=== PATIENT | female | born 2000 | race Caucasian/White ===

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

== ENCOUNTER 2018-03-22 09:37 | Outpatient (CLI) | payer OTHER, SELFPAY ==
[2018-03-22 10:07] LABS: HCT 35.4 % (36.0-46.0); HGB 12.1 g/dL (12.0-15.5); Mean Corp. HGB Concentration 34.2 g/dL (32.0-36.0); Mean Corpuscular Hemoglobin 29.4 pg (27.0-33.0); Mean Corpuscular Volume 85.9 fL (80-95); Mean Platelet Volume 10.5 fL (8.0-11.0); Platelet Count 131 x1000/uL (130-400); RBC 4.12 m/cumm (4.00-5.20); RBC Distribution Width 12.4 % (11.7-14.6)
[2018-03-22 10:43] LABS: Absolute Neutrophil Count 2.15 k/cumm (1.2-6.7)
[2018-03-22 10:48] LABS: Absolute Lymphocyte Count 3.13 k/cumm (1.2-3.4)
[2018-03-22 10:49] LABS: Absolute Eosinophil Count 0.06 k/cumm (0.0-0.7); Absolute Monocyte Count 0.46 k/cumm (0.11-0.7); Atypical Lymphocytes % 28; Diff Comment Manual Differential; ESR 60 MM/HR (0-20); RBC Morphology Normal
[2018-03-22 11:39] LABS: Mono Screening Negative (Negative)
[2018-03-22 11:46] LABS: ALT 193 U/L (12-78); AST 119 U/L (15-37); Albumin 3.2 g/dL (3.4-5.0); Alkaline Phosphatase 235 U/L (46-116); BUN 12 mg/dL (7-18); Bilirubin, Total 0.4 mg/dL (0.2-1.0); C-Reactive Protein 3.86 mg/dL (0.0-0.3); CREATININE 0.91 mg/dL (0.55-1.02); Calcium 9.1 mg/dL (8.5-10.1); Chloride 101 mmol/L (98-107); Glucose 92 mg/dL (70-100); LDH 355 U/L (81-234); Potassium 4.1 mmol/L (3.5-5.1); Sodium 137 mmol/L (136-145); TSH (W/Ref FT4) 2.77 uIU/mL (0.358-3.74); Total Protein 7.1 g/dL (6.4-8.2)
[2018-03-23 11:29] LABS: EBNA IgG Negative; EBV Interpretation SEE COMMENTS; VCA IgG Negative; VCA IgM Positive
== END 2018-03-22 09:57 ==
PROVIDERS: PCP Nurse Practitioner Pediatrics; Visit Provider Pediatrics
DX: R63.4 Abnormal weight loss (principal)
CPT/HCPCS: 36415; 80053; 85652; 83615; 84443; 85025; 86140; 86308; 86664; 86665

== ENCOUNTER 2018-03-23 11:25 | Outpatient (CLI) | payer OTHER, SELFPAY ==
[2018-03-23 12:14] LABS: INR 0.9 (0.9-1.1); Prothrombin Time 9.3 sec (9.3-11.0)
[2018-03-24 10:44] LABS: IgA 216 mg/dL (85-499); IgG 1041 mg/dL (610-1616); IgM 139 mg/dL (35-242)
[2018-03-24 10:57] LABS: Hepatitis A Antibody IgM Negative (NEGAT); Hepatitis B Core Antibody Negative (NEGAT); Hepatitis B surface Ag Negative (NEGAT); Hepatitis C Ab w Rflx HCV PCR Negative (NEGAT)
[2018-03-24 14:39] LABS: ANA Interpretation Positive (NEGAT); ANA Titer Pattern 1:320 Speckled
[2018-03-24 15:04] LABS: CMV Ab, IgM Negative (Negative)
[2018-03-24 22:30] LABS: Mitochondrial Ab, M2 0.1 U
== END 2018-03-23 11:45 ==
PROVIDERS: PCP Nurse Practitioner Pediatrics; Visit Provider Pediatrics
DX: K75.9 Inflammatory liver disease, unspecified (principal); R63.4 Abnormal weight loss
CPT/HCPCS: 36415; 82784; 83516; 86704; 86709; 86803; 87340; 85610; 86038; 86255; 86645

== ENCOUNTER 2018-03-28 10:09 | Outpatient (CLI) | payer OTHER, SELFPAY ==
[2018-03-28 11:25] LABS: Abs Immature Grans 0.02 k/cumm (0.0-0.09); HCT 35.4 % (36.0-46.0); HGB 11.8 g/dL (12.0-15.5); Mean Corp. HGB Concentration 33.3 g/dL (32.0-36.0); Mean Platelet Volume 10.6 fL (8.0-11.0); RBC 4.07 m/cumm (4.00-5.20); RBC Distribution Width 12.8 % (11.7-14.6); White Blood Cell Count 11.02 k/cumm (4.4-10.8)
[2018-03-28 12:00] LABS: ALT 162 U/L (12-78); AST 94 U/L (15-37); Albumin 3.2 g/dL (3.4-5.0); Alkaline Phosphatase 234 U/L (46-116); Anion Gap 7.8 mmol/L (3-11); BUN 13 mg/dL (7-18); Bilirubin, Total 0.3 mg/dL (0.2-1.0); CO2 28.2 mmol/L (21.0-32.0); CREATININE 0.79 mg/dL (0.55-1.02); Calcium 9.3 mg/dL (8.5-10.1); Chloride 102 mmol/L (98-107); Glucose 86 mg/dL (70-100); Potassium 4.1 mmol/L (3.5-5.1); Sodium 138 mmol/L (136-145); Total Protein 7.5 g/dL (6.4-8.2)
[2018-03-28 12:27] LABS: Absolute Monocyte Count 0.33 k/cumm (0.11-0.7); Absolute Neutrophil Count 2.09 k/cumm (1.2-6.7); Diff Comment Manual Differential; RBC Morphology Normal
[2018-03-28 12:28] LABS: Atypical Lymphocytes % 43
[2018-03-28 12:29] LABS: Platelet Count 48 x1000/uL (130-400)
== END 2018-03-28 10:29 ==
PROVIDERS: PCP Nurse Practitioner Pediatrics; Visit Provider Pediatrics
DX: R63.4 Abnormal weight loss (principal); K75.9 Inflammatory liver disease, unspecified
CPT/HCPCS: 36415; 80053; 85025

== ENCOUNTER 2018-04-01 10:22 | Outpatient (CLI) | payer OTHER, SELFPAY ==
[2018-04-01 11:25] LABS: HGB 10.9 g/dL (12.0-15.5); Mean Corpuscular Hemoglobin 28.8 pg (27.0-33.0); Mean Corpuscular Volume 87.1 fL (80-95); Mean Platelet Volume 10.6 fL (8.0-11.0); Platelet Count 115 x1000/uL (130-400); RBC 3.79 m/cumm (4.00-5.20); White Blood Cell Count 7.88 k/cumm (4.4-10.8)
[2018-04-01 11:40] LABS: ALT 84 U/L (12-78); AST 41 U/L (15-37); Albumin 3.1 g/dL (3.4-5.0); Alkaline Phosphatase 167 U/L (46-116); Anion Gap 8.2 mmol/L (3-11); BUN 13 mg/dL (7-18); Bilirubin, Total 0.3 mg/dL (0.2-1.0); CO2 27.8 mmol/L (21.0-32.0); Calcium 9.3 mg/dL (8.5-10.1); Chloride 102 mmol/L (98-107); Glucose 101 mg/dL (70-100); Potassium 3.9 mmol/L (3.5-5.1); Sodium 138 mmol/L (136-145); Total Protein 7.2 g/dL (6.4-8.2)
[2018-04-01 11:59] LABS: Absolute Lymphocyte Count 5.04 k/cumm (1.2-3.4); Absolute Monocyte Count 0.47 k/cumm (0.11-0.7); Absolute Neutrophil Count 2.36 k/cumm (1.2-6.7); Atypical Lymphocytes % 17
[2018-04-01 12:02] LABS: Diff Comment Manual Differential; RBC Morphology Normal
[2018-04-01 13:09] LABS: ESR 71 MM/HR (0-20)
== END 2018-04-01 10:42 ==
PROVIDERS: PCP Nurse Practitioner Pediatrics; Visit Provider Pediatrics
DX: R63.4 Abnormal weight loss (principal)
CPT/HCPCS: 36415; 80053; 85652; 85025

== ENCOUNTER 2018-08-30 10:23 | Outpatient (CLI) | payer OTHER, SELFPAY ==
[2018-08-30 11:55] LABS: HCG Qual (Serum) Negative
[2018-08-30 12:05] LABS: TSH (W/Ref FT4) 3.66 uIU/mL (0.358-3.74)
== END 2018-08-30 10:43 ==
PROVIDERS: PCP Nurse Practitioner Pediatrics; Visit Provider Nurse Practitioner Family
DX: N92.6 Irregular menstruation, unspecified (principal)
CPT/HCPCS: 36415; 84443; 84703

== ENCOUNTER 2019-03-23 16:31 | Outpatient (REF) | payer OTHER, SELFPAY ==
--- NOTE | 2019-03-23 15:30 | PAPFT_PTH ---
PATIENT: Jennifer Phelan LOC: [facility] U#:[id number] AGE/SX: 19/F ROOM: RE03/23/[address]: THU Samuel : 2000 BED: DIS: 03/23/2019 SPEC #: [id number] RECD: 03/23/19 17:52 STATUS: BENJAMIN RELuis #: [id number] [place]: 03/23/19 15:[address]: Olivia Burrows DEPT: [facility] Cytology RECD BY: Lucero Martinez ENTERED: 03/23/19 17:53 SP TYPE: PAPFT OT DR: GRICEL Saha Tissues: 1 - CX/ENDOCX FOR PAP SMEARS Procedures: PAP THIN PREP/[facility] Screening Comments: [id number]
[2019-03-27 14:43] LABS: Chlamydia Result Negative (Negative); GC Result Negative (Negative)
== END 2019-03-23 16:51 ==
LOC: LBN 16:31
PROVIDERS: PCP Nurse Practitioner Pediatrics; Visit Provider Nurse Practitioner Family
DX: Z11.3 Encounter for screening for infections with a predominantly sexual mode of transmission (principal); Z12.4 Encounter for screening for malignant neoplasm of cervix
CPT/HCPCS: 87491; 87591; 88142

== ENCOUNTER 2019-08-24 12:38 | Outpatient (REF) | payer OTHER, SELFPAY ==
[2019-08-25 14:04] LABS: Chlamydia Result Negative (Negative); GC Result Negative (Negative)
== END 2019-08-24 12:58 ==
LOC: LBN 12:38
PROVIDERS: PCP Nurse Practitioner; Visit Provider Nurse Practitioner Family
DX: Z11.3 Encounter for screening for infections with a predominantly sexual mode of transmission (principal)
CPT/HCPCS: 87491; 87591

== ENCOUNTER 2020-03-28 09:51 | Outpatient (REF) | payer OTHER, SELFPAY ==
--- NOTE | 2020-03-28 09:00 | PAPFT_PTH ---
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
== END 2020-03-28 10:11 ==
LOC: LBN 09:51
PROVIDERS: PCP Nurse Practitioner; Visit Provider Nurse Practitioner Family
DX: Z12.4 Encounter for screening for malignant neoplasm of cervix (principal)
CPT/HCPCS: 88142

== ENCOUNTER 2020-05-16 04:03 | Outpatient (CLI) | payer OTHER, SELFPAY ==
[2020-05-16 08:27] LABS: HCT 36.4 % (36.0-46.0); HGB 12.4 g/dL (11.2-15.7); MCH 30.1 pg (27.0-33.0); MCHC 34.1 % (32.0-36.0); MCV 88.3 fL (80-95); MPV 11.1 fL (8.0-11.0); RBC 4.12 10^6/uL (3.93-5.22); RDW 11.7 % (11.7-14.6); RDW-SD 38.1 fL; WBC 4.93 10^3/uL (4.4-10.8)
[2020-05-16 08:28] LABS: Platelet Count 137 10^3/uL (130-400)
[2020-05-16 09:09] LABS: Calculated LDL 105 mg/dL (<100); Cholesterol 200 mg/dL (<200); HDL Cholesterol 67 mg/dL (40-60); Triglyceride 143 mg/dL (<150)
== END 2020-05-16 04:04 | disposition home or self-care (01) ==
LOC: LBO 04:03
PROVIDERS: PCP Nurse Practitioner; Visit Provider Nurse Practitioner
DX: Z00.00 Encounter for general adult medical examination without abnormal findings (principal); D58.2 Other hemoglobinopathies; Z13.6 Encounter for screening for cardiovascular disorders
CPT/HCPCS: 36415; 80061; 85027

== ENCOUNTER 2020-06-05 01:45 | Outpatient (CLI) | payer OTHER, SELFPAY ==
--- NOTE | 2020-06-05 07:24 | DI.US_ITS ---
APPROVED REPORT EXAM: Comprehensive 2D, Doppler, and color-flow Echocardiogram Patient Location: Out-Patient [employer] Vice President: Deysi Cuenca RDCS (AE) Indications: Murmur Other Information Study Quality: Good Conclusion Left Ventricle : The left ventricle is normal size. The left ventricular systolic function is normal. The left ventricular ejection fraction is within the normal range. There is normal left ventricular wall thickness. There is normal LV segmental wall motion. The left ventricular diastolic function is normal. LVEF is 62%. Right Ventricle : The right ventricle is normal size. The right ventricular systolic function is norm al. Atria : The left atrium size is normal. The right atrium size is normal. Valves: There are no hemodynamically significant valvular lesions. Great Vessels : The aortic root is normal in size. Ascending aorta is not well visualized. Aortic arc h is normal in caliber. IVC is normal in size and collapses >50% with inspiration. See remainder of study for further details. Wall motion Left Ventricle The left ventricle is normal size. The left ventricular systolic function is normal. The left ventric ular ejection fraction is within the normal range. There is normal left ventricular wall thickness. T here is normal LV segmental wall motion. The left ventricular diastolic function is normal. There is no ventricular septal defect visualized. LVEF is 62%. Right Ventricle The right ventricle is normal size. The right ventricular systolic function is normal. Atria The left atrium size is normal. The right atrium size is normal. The interatrial septum is intact wit h no evidence for an atrial septal defect. Aortic Valve The aortic valve is normal in structure. Aortic valve is trileaflet. There is no aortic valvular sten osis. No aortic regurgitation is present. Mitral Valve The mitral valve is normal in structure. No evidence of mitral valve stenosis. Trace mitral regurgita tion. Tricuspid Valve The tricuspid valve is normal in structure. There is no tricuspid valve stenosis. Trace tricuspid reg urgitation. Pulmonic Valve The pulmonary valve is normal in structure. There is no pulmonic valvular stenosis. Mild pulmonic reg urgitation. Great Vessels The aortic root is normal in size. Ascending aorta is not well visualized. Aortic arch is normal in c aliber. IVC is normal in size and collapses >50% with inspiration. Pericardium There is no pericardial effusion. 2D Dimensions IVSD d PLAX 0.73 cm F: 0.6-1.0 LV Vol A2C d MOD 82.8 mL LVPW d PLAX 0.78 cm F: 0.6 - 1.0 LV Vol A4C d MOD 90.8 mL LVID d PLAX 4.07 cm F: 3.8 - 5.2 LA vol/ BSA A4C s A-L 17.5 mL/m2 LVDs 2.70 cm F: 2.2 - 3.5 LA Area A4C s MOD 11.94 cm2 Ao Root d 2.60 cm F: 2.7 - 3.3 LV EF A4C MOD 62.2 % RA Area A4C 10.14 cm2 LV EF A2C MOD 61.8 % RA Vol/ BSA A4C s A-L 12.3 mL/m2 LV EF Biplane MOD 61.9 % LV EF Teichholz 62.0 % SV 56.96 mL LVEF (Ayers's) 61.92 % F: 54 - 74 SV Index 33.29 mL/m2 LV Volume 72.87 mL F: 46 - 106 LV Volume Index 42.61 mL/m2 F: 29 - 61 LV Vol Biplane MOD 92.0 mL FS 32.95 % M-Mode TAPSE 2.36 cm (M/F) >1.7 LV Diastology MV E' medial 0.117 (>0.07 m/s) E/A Ratio 1.2 LV E/e MED 6.95 (<14) MV E Vmax 0.82 (0.4-1.3 m/s) MV E' lateral 0.168 (>0.1 m/s) MV A Vmax 0.70 (0.4-1.3 m/s) LV E/e LAT 4.85 (<14) MV E/A Ratio 1.10 MV E/E' medial 6.98 MV E/E' lateral 4.88 Aortic Valve LVOT Area 3.12 cm2 AoV Area Vmax 2.51 cm2 LVOT Vmax 0.89 m/s AoV Area/ BSA (Vmax) 1.47 cm2/m2 LVOT Mean Tony. 0.65 m/s ROBERT Mean Tony. 2.48 cm2 LVOT Peak Grad 3.2 mmHg ROBERT Mean Tony. Index 1.45 cm2/m2 LVOT Mean Grad 1.9 mmHg LVOT VTI 0.185 m LVOT Diam s 1.95 cm AoV Vmax 1.11 m/s Velocity Ratio 0.80 AoV Mean Tony. 0.81 m/s AoV Peak Grad 4.9 mmHg LVOT SV 57.80 mL AoV Mean Grad 2.9 mmHg AoV VTI 0.233 m AoV Area VTI 2.48 cm2 AoV Area/ BSA (VTI) 1.45 cm/m2 Mitral Valve MV DT 166 (160-240 msec) MV PHT 48 msec MV Area PHT 4.56 cm2 MV VTI 0.234 m MV VTI Annulus 0.236 m MV Area VTI 2.49 (4.0-6.0 cm2) Pulmonary Valve PV Vmax 1.30 (0.5-1.5 m/s) RVOT Peak Gr. 3.54 mmHg PV Peak Grad 6.7 mmHg RVOT Mean Gr. 2.00 mmHg PV Mean Grad 3.6 mmHg RVOT VTI 0.208 m PV VTI 0.261 m RVOT Vmax 0.94 m/s Tricuspid Valve TR Peak Grad 11.0 mmHg TR Vmax 1.66 m/s RA Pressure 3.00 mmHg RVSP (TR) 14.1 mmHg
== END 2020-06-05 02:05 ==
PROVIDERS: PCP Nurse Practitioner; Visit Provider Nurse Practitioner
DX: R01.1 Cardiac murmur, unspecified (principal)
CPT/HCPCS: 93306

== ENCOUNTER 2021-04-07 10:39 | Outpatient (REF) | payer OTHER, SELFPAY ==
--- NOTE | 2021-04-07 10:00 | PAPFT_PTH ---
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
== END 2021-04-07 10:40 | disposition home or self-care (01) ==
LOC: LBN 10:39
PROVIDERS: PCP Nurse Practitioner; Visit Provider Nurse Practitioner Family
DX: Z12.4 Encounter for screening for malignant neoplasm of cervix (principal)
CPT/HCPCS: 88142

== ENCOUNTER 2021-04-18 16:36 | Outpatient (CLI) | payer OTHER, SELFPAY ==
--- NOTE | 2021-04-18 16:30 | RT.EKG_ITS ---
APPROVED REPORT Exam: Resting ECG Reason for Exam: ADD Patient Location: O HR:71 bpm ECG Measurements Heart Rate 71 AXIS VT 233 P 11 QRSd 84 QRS 81 QT 378 T 42 QTc 412 Conclusion Sinus rhythm...normal P axis, V-rate 60- 99 Prolonged VT interval...VT >210, V-rate 50- 90
== END 2021-04-18 16:37 | disposition home or self-care (01) ==
LOC: DI.CM 16:37
PROVIDERS: PCP Nurse Practitioner; Visit Provider Nurse Practitioner
DX: F98.8 Other specified behavioral and emotional disorders with onset usually occurring in childhood and adolescence (principal); I44.0 Atrioventricular block, first degree
CPT/HCPCS: 93010

== ENCOUNTER 2021-07-01 01:44 | Outpatient (CLI) | payer OTHER, SELFPAY ==
[2021-07-01 08:34] LABS: ALT 27 U/L (14-59); AST 20 U/L (15-37); Albumin 3.2 g/dL (3.4-5.0); Alkaline Phosphatase 53 U/L (46-116); Anion Gap 7.3 mmol/L (3-11); BUN 14 mg/dL (7-18); Bilirubin, Total 0.5 mg/dL (0.2-1.0); CO2 25.7 mmol/L (21.0-32.0); CREATININE 0.8 mg/dL (0.55-1.02); Calcium 8.4 mg/dL (8.5-10.1); Chloride 106 mmol/L (98-107); Glucose 89 mg/dL (74-106); Potassium 4.1 mmol/L (3.5-5.1); Sodium 139 mmol/L (136-145); Total Protein 6.1 g/dL (6.4-8.2)
[2021-07-02 09:59] LABS: HBs Antibody, Quant 822.4 mIU/mL (See Note); Hepatitis B Surface Ab Positive (See Note)
[2021-07-03 14:49] LABS: TB1 Ag minus Nil 0.52 IU/ml; TB2 Ag minus Nil 0.82 IU/mL
[2021-07-04 15:07] LABS: TB Interpretation Positive (Negative)
== END 2021-07-01 01:45 | disposition home or self-care (01) ==
LOC: LBO 01:45
PROVIDERS: PCP Nurse Practitioner; Visit Provider Family Medicine
DX: R74.8 Abnormal levels of other serum enzymes (principal); Z11.1 Encounter for screening for respiratory tuberculosis; Z11.59 Encounter for screening for other viral diseases; Z02.0 Encounter for examination for admission to educational institution
CPT/HCPCS: 36415; 80053; 86706; 86480

== ENCOUNTER 2021-07-08 04:08 | Outpatient (CLI) | payer OTHER, SELFPAY ==
--- NOTE | 2021-07-08 15:32 | DI.RAD_ITS ---
Exam(s) XR CHEST 2V PA LATERAL EXAM: XR CHEST 2V PA LATERAL CLINICAL HISTORY: r/o active TB,positive quantiferon tb gold test,r76.12 TECHNIQUE: 2D digital imaging was performed of the chest. Two images were obtained. PA and lateral views were obtained. COMPARISON: No exams were available for comparison FINDINGS: MEDIASTINUM: Normal. HEART: Normal. PULMONARY VASCULATURE: Normal. LUNGS: Clear. PLEURAL SPACE: No pleural effusion or pneumothorax. BONE:Within normal limits for the patient's age. There is a mild right convex thoracic scoliosis. OTHER FINDINGS:Normal. IMPRESSION: No acute pulmonary findings. DATA REPOSITORY: RADIATION DOSE DELIVERED:
== END 2021-07-08 04:28 ==
PROVIDERS: PCP Nurse Practitioner; Visit Provider Nurse Practitioner
DX: R76.12 Nonspecific reaction to cell mediated immunity measurement of gamma interferon antigen response without active tuberculosis (principal)
CPT/HCPCS: 71046

== ENCOUNTER 2021-07-11 01:56 | Outpatient (CLI) | payer OTHER, SELFPAY | END 2021-07-11 01:57 | disposition home or self-care (01) | LOC: LBO 01:56 | PROVIDERS: PCP Nurse Practitioner; Visit Provider Nurse Practitioner ==

== ENCOUNTER 2022-07-27 11:58 | Outpatient (REF) | payer MEDICAID, SELFPAY ==
--- NOTE | 2022-07-27 09:15 | SKI_PTH ---
PATIENT: Jennifer Phelan LOC: [facility] U#:[id number] AGE/SX: 22/F ROOM: RE07/27/[address]: Zach Nelson DNP : 2000 BED: DIS: 07/27/2022 SPEC #: [id number] RECD: 07/27/22 13:04 STATUS: BENJAMIN RELuis #: [id number] [place]: 07/27/22 09:[address]: Zach Lyn DEPT: Surgical Specimen RECD BY: Lucero Martinez Tissues: 1 - SKIN BIOPSY(SHAVE/PUNCH) 2 - SKIN BIOPSY(SHAVE/PUNCH) Procedures: SKIN LEVEL 4 Comments: [id number]
== END 2022-07-27 11:59 | disposition home or self-care (01) ==
LOC: LBN 11:58
PROVIDERS: PCP Nurse Practitioner Family; Visit Provider Nurse Practitioner Family
DX: D22.5 Melanocytic nevi of trunk (principal); D22.61 Melanocytic nevi of right upper limb, including shoulder
CPT/HCPCS: 88305

== ENCOUNTER 2022-08-31 04:17 | Outpatient (CLI) | payer MEDICAID, SELFPAY ==
[2022-09-02 12:55] LABS: TB Interpretation Negative (Negative); TB1 Ag minus Nil 0.13 IU/ml; TB2 Ag minus Nil 0.08 IU/mL
== END 2022-08-31 04:18 | disposition home or self-care (01) ==
LOC: LBO 04:17
PROVIDERS: PCP Nurse Practitioner Family; Visit Provider Nurse Practitioner Family
DX: R76.12 Nonspecific reaction to cell mediated immunity measurement of gamma interferon antigen response without active tuberculosis (principal)
CPT/HCPCS: 36415; 86480

== ENCOUNTER 2023-02-03 04:01 | Outpatient (CLI) | payer MEDICAID, SELFPAY ==
[2023-02-03 15:42] LABS: HCT 36.7 % (36.0-46.0); HGB 12.2 g/dL (11.2-15.7); MCH 29.5 pg (27.0-33.0); MCHC 33.2 % (32.0-36.0); MCV 89 fL (80-95); MPV 10.7 fL (8.0-11.0); Platelet Count 156 10^3/uL (130-400); RBC 4.13 10^6/uL (3.93-5.22); RDW 12.2 % (11.7-14.6); WBC 5.91 10^3/uL (4.4-10.8)
[2023-02-03 17:00] LABS: TSH (W/Ref FT4) 1.66 uIU/mL (0.36-3.74)
[2023-02-05 14:27] LABS: Lab Add On Test DONE
[2023-02-05 14:38] LABS: Iron 105 ug/dL (50-170)
[2023-02-05 15:05] LABS: Ferritin 42 ng/mL (8-252); Vitamin B12 474 pg/mL (193-986)
== END 2023-02-03 04:02 | disposition home or self-care (01) ==
LOC: LBO 04:01
PROVIDERS: PCP Nurse Practitioner Family; Visit Provider Nurse Practitioner Family
DX: R53.83 Other fatigue (principal)
CPT/HCPCS: 36415; 85027; 82607; 82728; 83540; 84443

== ENCOUNTER 2023-02-05 14:25 | Outpatient (REF) | payer MEDICAID, SELFPAY ==
[2023-02-08 11:30] LABS: Lyme Ab w Rflx to Lyme Confirm Negative (Negative)
[2023-02-09 13:56] LABS: Anaplasma phagocytophilum Negative (Negative); B. miyamotoi PCR Negative (Negative); Babesia divergens/MO-1 Negative (Negative); Babesia duncani Negative (Negative); Babesia microti Negative (Negative); Ehrlichia chaffeensis Negative (Negative); Ehrlichia ewingii/canis Negative (Negative); Ehrlichia muris eauclairensis Negative (Negative)
== END 2023-02-05 14:26 | disposition home or self-care (01) ==
LOC: LBN 14:25
PROVIDERS: PCP Nurse Practitioner Family; Visit Provider Nurse Practitioner Family
DX: R53.83 Other fatigue (principal)
CPT/HCPCS: 87798; 86618

== ENCOUNTER 2023-06-28 14:14 | Outpatient (REF) | payer MEDICAID, SELFPAY ==
[2023-06-30 12:07] LABS: Chlamydia Result Negative (Negative); GC Result Negative (Negative)
== END 2023-06-28 14:15 | disposition home or self-care (01) ==
LOC: LBN 14:14
PROVIDERS: Advanced Practice Midwife; PCP Nurse Practitioner Family; Visit Provider Nurse Practitioner Women's Health
DX: Z11.3 Encounter for screening for infections with a predominantly sexual mode of transmission (principal)
CPT/HCPCS: 87491; 87591

== ENCOUNTER 2023-08-17 08:54 | Outpatient (REF) | payer MEDICAID, SELFPAY | END 2023-08-17 08:55 | disposition home or self-care (01) | LOC: LBN 08:54 | PROVIDERS: PCP Nurse Practitioner Family; Visit Provider Nurse Practitioner Family | DX: R30.0 Dysuria (principal) | CPT/HCPCS: 87086 ==

== ENCOUNTER 2023-12-15 02:12 | Outpatient (CLI) | payer MEDICAID, SELFPAY ==
[2023-12-17 11:15] LABS: TB Interpretation Negative (Negative); TB1 Ag minus Nil 0.04 IU/ml; TB2 Ag minus Nil 0.05 IU/mL
== END 2023-12-15 02:13 | disposition home or self-care (01) ==
LOC: LBO 02:12
PROVIDERS: PCP Nurse Practitioner Family; Visit Provider Nurse Practitioner Family
DX: Z11.1 Encounter for screening for respiratory tuberculosis (principal)
CPT/HCPCS: 36415; 86480